=== PATIENT | female | born 1975 | race Caucasian/White ===

== ENCOUNTER 2017-11-07 05:27 | Day surgery (SDC) | payer OTHER ==
[~2017-11-07] VITALS: Ht 160 cm; Wt 64.4 kg
[~2017-11-07 05:27] MED LIST: ATARAX,VISTARIL25 MG PO; DESYREL100 MG PO; KLONOPIN0.5 M1 PO; LEXAPRO10 MG PO; NAPROXEN500 MG PO; ZINC CHELATED50 MG PO
[2017-11-07 05:58] VITALS: BP 127/67
[2017-11-07] MEDS ORDERED: NORCO 5/3251 TABLET PO (08:33)
[2017-11-07 09:14] VITALS: BP 104/69
[2017-11-07 10:14] VITALS: BP 100/55
== END 2017-11-07 10:35 | disposition home or self-care (01) ==
LOC: SDC 05:27
DX: N84.0 Polyp of corpus uteri (principal); N92.1 Excessive and frequent menstruation with irregular cycle; R00.1 Bradycardia, unspecified; Z87.891 Personal history of nicotine dependence; Z91.040 Latex allergy status
CPT/HCPCS: 88305; 93005; J1100; J1170; J1885; J2250; J2405; J3010